=== PATIENT | female | born 1950 | race Two or more races ===

== ENCOUNTER → 2022-09-18 | Outpatient (CLI) | payer MEDICARE, OTHER | END | disposition home or self-care (01) | LOC: Rad HDHVI 13:05 | PROVIDERS: ATTEND Internal Medicine Cardiovascular Disease | DX: I34.0 Nonrheumatic mitral (valve) insufficiency (principal); I11.9 Hypertensive heart disease without heart failure; E78.5 Hyperlipidemia, unspecified | CPT/HCPCS: 93306 ==

== ENCOUNTER → 2022-09-22 | Outpatient (CLI) | payer MEDICARE, OTHER ==
[~2022-09-22] VITALS: Ht 162.6 cm; Wt 65.3 kg
== END | disposition home or self-care (01) ==
LOC: Rad HDHVI 12:37
PROVIDERS: ATTEND Internal Medicine Cardiovascular Disease
DX: I10 Essential (primary) hypertension (principal); E78.5 Hyperlipidemia, unspecified; I34.0 Nonrheumatic mitral (valve) insufficiency; Z82.49 Family history of ischemic heart disease and other diseases of the circulatory system
CPT/HCPCS: 78452; 93017; 96374; A9500

== ENCOUNTER → 2024-01-03 | Outpatient (CLI) | payer MEDICARE, OTHER | END | disposition home or self-care (01) | LOC: LAB 13:08 | PROVIDERS: ATTEND Internal Medicine | DX: R26.89 Other abnormalities of gait and mobility (principal) | CPT/HCPCS: 36415; 82565; 84520 ==

== ENCOUNTER → 2024-02-21 | Outpatient (CLI) | payer MEDICARE, OTHER ==
[~2024-02-21] VITALS: Ht 162.6 cm; Wt 63.5 kg
[~2024-02-21] MED LIST: ADENOSINE 53 MG in GIVE UN-DILUTED 0 ML IV ONE; ADENOSINE 90 MG/30 ML INJ IV ONE
== END | disposition home or self-care (01) ==
LOC: Rad HDHVI 08:39
PROVIDERS: ATTEND Internal Medicine Cardiovascular Disease
DX: I70.1 Atherosclerosis of renal artery (principal); I11.0 Hypertensive heart disease with heart failure; I50.9 Heart failure, unspecified; R42 Dizziness and giddiness; E11.9 Type 2 diabetes mellitus without complications
CPT/HCPCS: 78452; 93005; 96374; 96375; A9500; J0153

== ENCOUNTER → 2024-09-20 | Outpatient (CLI) | payer MEDICARE, OTHER ==
[2024-09-20 06:37] LABS: Urine Bacteria None Seen /hpf (None Seen)
[2024-09-20 06:59] LABS: Urine Blood Negative /uL (Negative); Urine Clarity Clear (Clear); Urine Color Colorless (Yellow); Urine Protein, UAD Negative (Negative); Urine Specific Gravity 1.003 (1.001-1.035); Urine Squamous Epithelial Cell None Seen /hpf (<5); Urine Urobilinogen Normal (Negative); Urine WBC < 1 /HPF (0-5)
== END | disposition home or self-care (01) ==
LOC: LAB 06:34
PROVIDERS: ATTEND Urology
DX: N39.0 Urinary tract infection, site not specified (principal)
CPT/HCPCS: 81001; 87086

== ENCOUNTER 2024-10-11 12:30 | Outpatient (CLI) | payer MEDICARE, OTHER | END 2024-10-11 17:00 | disposition home or self-care (01) | LOC: Rad HDHVI 12:30 | PROVIDERS: ATTEND Internal Medicine Cardiovascular Disease | DX: I10 Essential (primary) hypertension (principal); H53.8 Other visual disturbances | CPT/HCPCS: 93880 ==

== ENCOUNTER 2024-11-21 10:54 | Inpatient (IN) | payer MEDICARE, OTHER ==
[~2024-11-21] VITALS: Ht 162.6 cm; Wt 69.0 kg
--- NOTE | 2024-11-21 11:11 | ED.PDOC ---
HPI (NEURO) HPI Comments 74 y/o F, presents to the ED for CC of generalized weakness. Patient states, she has been experiencing symptoms of generalized weakness with associated nasal congestion onset, last night (11/20/24). Patient reports, new onset symptoms of dizziness, faintness, and nausea starting this morning (11/21/24). Patient denies urinary frequency, dysuria, chest pain, shortness of breath, or photophobia. No other associated symptoms, modifiers, recent injuries or sick contacts present at this time. 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 Family History Family History: Unknown Social History Smoker: Non-Smoker Alcohol: Denies ETOH Use Drugs: Denies Drug Use Lives In: Home Constitutional: reports: sweats, weakness; denies: chills, diaphoresis, fatigue, fever, malaise, others EENTM: reports: nose congestion; denies: blurred vision, double vision, ear bleeding, ear discharge, ear drainage, ear pain, ear ringing, eye pain, eye redness, hearing loss, mouth pain, mouth swelling, nasal discharge, nose bleeding, nose pain, photophobia, tearing, throat pain, throat swelling, voice changes, others Respiratory: denies: cough, hemoptysis, orthopnea, SOB at rest, shortness of breath, SOB with excertion, stridor, wheezing, others Cardiovascular: denies: chest pain, dizzy spells, diaphoresis, Dyspnea on exertion, edema, irregular heart beat, left arm pain, lightheadedness, palpitations, PND, syncope, others Gastrointestinal: reports: nausea; denies: abdomen distended, abdominal pain, blood streaked bowels, constipated, diarrhea, dysphagia, difficulty swallowing, hematemesis, melena, poor appetite, poor fluid intake, rectal bleeding, rectal pain, vomiting, others Genitourinary: denies: abnormal vagina bleeding, burning, dyspareunia, dysuria, flank pain, frequency, hematuria, incontinence, pain, , vagina discharge, urgency, others Neurological: denies: dizziness, fainting, headache, left sided numbness, left sided weakness, numbness, paresthesia, pre-existing deficit, right sided numbness, right sided weakness, seizure, speech problems, tingling, tremors, weakness, others Musculoskeletal: denies: back pain, gout, joint pain, joint swelling, muscle pain, muscle stiffness, neck pain, others Integumetry: denies: bruises, change in color, change in hair/nails, dryness, laceration, lesions, lumps, rash, wounds, others Allergic/Immunocompromised: denies: Difficulty Healing, Frequent Infections, Hives, Itching, others Hematologic/Lymphatic: denies: anemia, blood clots, easy bleeding, easy bruising, swollen glands, others Endocrine: denies: excessive hunger, excessive sweating, excessive thirst, excessive urination, flushing, intolerance to cold, intolerance to heat, unexplained weight gain, unexplained weight loss, others Psychiatric: denies: anxiety, bipolar disorder, depression, hopeless, panic disorder, schizophrenia, sleepless, suicidal, others All Other Systems: Reviewed and Negative Physical Exam General Appearance: No Apparent Distress, Normal, Other (fraile, weak apperaing) HEENT: Normal ENT Inspection, Pharynx Normal Neck: Full Range of Motion, Non-Tender, Normal, Normal Inspection Respiratory: Chest Non-Tender, Lungs Clear, No Accessory Muscle Use, No Respiratory Distress, Normal Breath Sounds Cardiovascular: No Edema, No Murmur, No Gallop, Normal Peripheral Pulses, Regular Rate/Rhythm Breast Exam: Deferred Gastrointestinal: No Organomegaly, Non Tender, No Pulsatile Mass, Normal Bowel Sounds, Soft Genitalia: Deferred Pelvic: Deferred Rectal: Deferred Extremities: No calf tenderness, Normal capillary refill, Normal inspection, Normal range of motion, Non-tender, No pedal edema Musculoskeletal : Apperance: Normal Neurologic: Alert, pricing clerk II-XII nml as Tested, No Motor Deficits, Normal Affect, Normal Mood, No Sensory Deficits Cerebellar Function: Normal Reflexes: Normal Skin: Dry, Normal Color, Warm Lymphatic: No Adenopathy Was a procedure done? Was a procedure done?: No Differential Diagnosis (SZ) Seizure: N/A General Weakness: Dehydration, Electrolyte imbalance, Hypoglycemia, Vertigo: central, Vertigo: peripheral Headache: N/A X-Ray, Labs, Meds, VS Vital Signs Date Time Temp Pulse Resp B/P (MAP) Pulse Ox O2 Delivery O2 Flow Rate FiO2 11/21/24 11:09 65 11/21/24 11:00 97.7 62 12 99/49 95 97.7 Lab Test 11/21/24 11:20 Range/Units White Blood Count 4.9 4.4-10.8 10^3/uL Red Blood Count 5.04 4.0-5.20 10^6/uL Hemoglobin 16.2 12.2-16.2 g/dL Hematocrit 47.0 H 36.0-46.0 % Mean Corpuscular Volume 93.2 80.0-100.0 fL Mean Corpuscular Hemoglobin 32.1 H 28.0-32.0 pg Mean Corpuscular Hemoglobin Concent 34.5 32.0-36.0 g/dL Red Cell Distribution Width 13.4 11.8-14.3 % Platelet Count 187 140-450 10^3/uL Mean Platelet Volume 9.1 6.9-10.8 fL Neutrophils (%) (Auto) 67.6 37.0-80.0 % Lymphocytes (%) (Auto) 18.5 10.0-50.0 % Monocytes (%) (Auto) 12.3 H 0.0-12.0 % Eosinophils (%) (Auto) 0.5 0.0-7.0 % Basophils (%) (Auto) 1.1 0.0-2.0 % Neutrophils # (Auto) 3.3 1.6-8.6 10 ^3/uL Lymphocytes # (Auto) 0.9 0.4-5.4 10 ^3/uL Monocytes # (Auto) 0.6 0-1.3 10 ^3/uL Eosinophils # (Auto) 0 0-0.8 10 ^3/uL Basophils # (Auto) 0.1 0-0.2 10 ^3/uL Nucleated Red Blood Cells 0.0 % Sodium Level 138 136-145 mmol/L Potassium Level 4.0 3.5-5.1 mmol/L Chloride Level 102 98-107 mmol/L Carbon Dioxide Level 27 20-31 mmol/L Anion Gap 9 5-15 Blood Urea Nitrogen 12 9-23 mg/dL Creatinine 0.71 0.550-1.02 mg/dL Glomerular Filtration Rate Calc 88 >90 mL/min BUN/Creatinine Ratio 16.9 10.0-20.0 Serum Glucose 145 H 74-106 mg/dL Lactic Acid Level 2.1 *H 0.4-2.0 mmol/L Calcium Level 10.3 8.7-10.4 mg/dL Troponin I High Sensitivity < 3 L </=34 ng/L B-Type Natriuretic Peptide 13.56 0-100 pg/mL [place] [id number] Ph: [phone] DIAGNOSTIC IMAGING Diagnostic Imaging Report : [id number] Signed PATIENT: NICKY YEAGER ACCT: [id number] UNIT: [id number] : 1950 LOC: ER ROOM / BED: / AGE / SEX: 74 / F ADM STATUS: REG ER SERVICE 03 ORDERING PHYSICIAN: CATHY ÁLVAREZ MD PROCEDURE(s): CXRP - CHEST PORTABLE REASON: near syncope ORDER NUMBER(s): [id number], ACCESSION NUMBER(s): [id number] EXAM: XY CHEST PORTABLE HISTORY: near syncope COMPARISON: Chest CT dated 07/19/2023 TECHNIQUE: Portable upright AP view of the chest was performed. FINDINGS: No pneumothorax, consolidative infiltrates, or pulmonary edema. The heart is borderline enlarged. IMPRESSION: No acute intrathoracic process. ATED BY: MALA BENAVIDES MD DICTATED DATE/TIME: 11/21/24 114 SIGNED BY: MALA BENAVIDES MD SIGNED DATE/TIME: 11/21/24 114 CC: [place] [id number] Ph: [phone] DIAGNOSTIC IMAGING Diagnostic Imaging Report : [id number] Signed PATIENT: NICKY YEAGER ACCT: [id number] UNIT: [id number] : 1950 LOC: ER ROOM / BED: / AGE / SEX: 74 / F ADM STATUS: REG ER SERVICE 03 ORDERING PHYSICIAN: CATHY ÁLVAREZ MD PROCEDURE(s): HWOCT - HEAD WITHOUT CONTRAST REASON: near syncope ORDER NUMBER(s): [id number], ACCESSION NUMBER(s): [id number] EXAM: CT HEAD WITHOUT CONTRAST INDICATION: near syncope TECHNIQUE: CT of the head without intravenous contrast. Radiation Dose Information: CT Dose: CTDI volume is 55.04 mGy. Dose-length product is 974.63 mGy*cm The dose indicators for CT are the volume Computed Tomography (CT) Dose Index (CTDIvol) and the Dose Length Product (DLP), and are measured in units of mGy and mGy-cm, respectively. These indicators are not patient dose, but values generated from the CT scanner acquisition factors. The report includes radiation exposure data for exposures received during this examination. COMPARISON: None FINDINGS: There is no evidence of acute intracranial hemorrhage, extra-axial collection, mass effect, midline shift, herniation or hydrocephalus. The ventricles, sulci and cisterns are age appropriate. The taylor-white differentiation is intact. Patchy periventricular and subcortical white matter hypoattenuation is nonspecific but may be related to small vessel ischemic disease. The visualized paranasal sinuses and mastoid air cells are clear. The surrounding soft tissues and osseous structures are unremarkable. IMPRESSION: No acute intracranial abnormality. ATED BY: MYRANDA BANERJEE MD DICTATED DATE/TIME: 11/21/24 1159 SIGNED BY: MYRANDA BANERJEE MD SIGNED DATE/TIME: 11/21/24 1159 CC: Time of 1ST Reevaluation: 11:30 Reevaluation 1ST: Unchanged Patient Education/Counseling: Diagnosis, Treatment Family Education/Counseling: No Family Present Departure 1 Departure Time of Disposition: 13:03 (Patient's worsening weakness and generalized fat igue. Patient also reports she has with her hair and fingernails. Possibly thyroid issue. Patient easily feels like she is going to pass out. We will admit patient for further workup and expert consultation) Impression: Primary Impression: Near syncope Additional Impressions: Intractable abdominal pain Nausea Disposition: ADMITTED INPATIENT Admit to: Med Surg Condition: Serious Critical Care Note Critical Care Time?: No Stability Stability form required: No Heart Score Heart Score: Heart Score Response (Comments) Value History N/A 0 EKG N/A 0 Age N/A 0 Risk Factors N/A 0 Troponin N/A 0 Total 0 I personally scribed for CATHY ÁLVAREZ MD ([email or web address]) on 11/21/24 at 11:11. Electronically submitted by Christy Kendrick ([employer]). I personally scribed for CATHY ÁLVAREZ MD ([email or web address]) on 11/21/24 at 12:06. Electronically submitted by Christy Kendrick ([employer]). I personally scribed for CATHY ÁLVAREZ MD ([email or web address]) on 11/21/24 at 12:11. Electronically submitted by Christy Kendrick ([employer]). CATHY ÁLVAREZ MD Nov 21, 2024 11:11
[2024-11-21 11:36] LABS: Hematocrit 47.0 % (36.0-46.0); Hemoglobin 16.2 g/dL (12.2-16.2); Mean Corpuscular Hemoglobin 32.1 pg (28.0-32.0); Mean Corpuscular Volume 93.2 fL (80.0-100.0); Nucleated Red Blood Cells % 0.0 %
[2024-11-21 11:43] LABS: Chloride 102 mmol/L (98-107); Potassium 4.0 mmol/L (3.5-5.1); Sodium 138 mmol/L (136-145)
[2024-11-21 11:44] LABS: Anion Gap 9 (5-15); Calcium 10.3 mg/dL (8.7-10.4); Carbon Dioxide 27 mmol/L (20-31)
--- NOTE | 2024-11-21 11:46 | DVH ---
EXAM: XY CHEST PORTABLE HISTORY: near syncope COMPARISON: Chest CT dated 07/19/2023 TECHNIQUE: Portable upright AP view of the chest was performed. FINDINGS: No pneumothorax, consolidative infiltrates, or pulmonary edema. The heart is borderline enlarged. IMPRESSION: No acute intrathoracic process.
[2024-11-21 11:49] LABS: BUN/Creatinine Ratio 16.9 (10.0-20.0); Blood Urea Nitrogen 12 mg/dL (9-23); Glucose 145 mg/dL (74-106)
[2024-11-21 12:01] LABS: Lactic Acid w/Reflex 2.1 mmol/L (0.4-2.0)
--- NOTE | 2024-11-21 12:02 | DVH ---
EXAM: CT HEAD WITHOUT CONTRAST INDICATION: near syncope TECHNIQUE: CT of the head without intravenous contrast. Radiation Dose Information: CT Dose: CTDI volume is 55.04 mGy. Dose-length product is 974.63 mGy*cm The dose indicators for CT are the volume Computed Tomography (CT) Dose Index (CTDIvol) and the Dose Length Product (DLP), and are measured in units of mGy and mGy-cm, respectively. These indicators are not patient dose, but values generated from the CT scanner acquisition factors. The report includes radiation exposure data for exposures received during this examination. COMPARISON: None FINDINGS: There is no evidence of acute intracranial hemorrhage, extra-axial collection, mass effect, midline s hift, herniation or hydrocephalus. The ventricles, sulci and cisterns are age appropriate. The taylor-white differentiation is intact. Patchy periventricular and subcortical white matter hypoattenuation is nonspecific but may be related to small vessel ischemic disease. The visualized paranasal sinuses and mastoid air cells are clear. The surrounding soft tissues and osseous structures are unremarkable. IMPRESSION: No acute intracranial abnormality.
[2024-11-21] MEDS ORDERED: ANAS1TAB7 PO (14:12)
[2024-11-21] MEDS ORDERED: AMLO1TAB22 PO (14:12)
[2024-11-21] MEDS: ACETAMINOPHEN 325 MG TAB PO ONE (14:16)
[2024-11-21] MEDS: SODIUM CHLORIDE 0.9% 1,000 ML IV ONE (14:16)
[2024-11-21] MEDS: ONDANSETRON HCL 4 MG/2 ML VIAL IV ONE (14:18)
[2024-11-21 14:27] LABS: Urine Protein, UAD Negative (Negative)
[2024-11-21] MEDS ORDERED: DOCUSATE SOD 100 MG CAP PO PRN (14:45)
[2024-11-21] MEDS ORDERED: ONDANSETRON HCL 4 MG/2 ML VIAL IV PRN (14:45)
[2024-11-21] MEDS ORDERED: MORPHINE SULFATE INJ 2 MG/ml SYRG IV PRN (14:45)
[2024-11-21] MEDS ORDERED: NITROGLYCERIN 0.4 MG SL TAB SL PRN (14:45)
[2024-11-21] MEDS ORDERED: HYDROcodone-ACET 5/325MG TAB PO PRN (14:45)
--- NOTE | 2024-11-21 14:48 | DVHHP2 ---
History of Present Illness Reason for Visit: Generalized weakness History of Present Illness Shalonda Torres is a 74-year-old female with past medial history of hypertension, who came to the hospital for generalized weakness. Patient states she woke up this morning with congestion, feeling dizzy, and nauseated. She went to urgent care to be evaluated. While she was there she became lightheaded, hypertensive, sweaty, nauseated, dizzy, and had a near syncopal episode. The urgent care staff wheeled the patient to ER for further evaluation. Cardiovascular: HTN Past Surgical History: Hysterectomy, Other (left breast lumpectomy, right knee) Smoke: No ALCOHOL: none Drugs: None Lives: with Family Review of Systems Constitutional: Yes: Sweats, Other (lightheadedness, headache); No: Fever, Chills, Weakness, Malaise Eyes: No: Pain, Vision change, Conjunctivae inflammation, Eyelid inflammation, Other, Redness ENT: No: Ear pain, Ear discharge, Nose pain, Nose discharge, Nose congestion, Mouth pain, Mouth swelling, Throat pain, Throat swelling, Other Respiratory: No: Cough, Dry, Shortness of breath, SOB with excertion, Wheezing, Hemoptysis, Pleuritic Pain, Sputum, Wheezing, Other Cardiovascular: No: Chest Pain, Palpitations, Orthopnea, Paroxysmal Noc. Dyspnea, Edema, Lt Headedness, Other Gastrointestinal: Nausea; No: Vomiting, Abdominal Pain, Diarrhea, Constipation, Melena, Hematochezia, Other Genitourinary: No Dysuria, No Frequency, No Incontinence, No Hematuria, No Retention, No Other Musculoskeletal: No: other, neck pain, shoulder pain, arm pain, back pain, hand pain, leg pain, foot pain Skin: No: Rash, Lesions, Jaundice, Bruising, Other Neurological: Other (dizzy); No: Weakness, Numbness, Incoordination, Change in speech, Confusion, Seizures Allergies: Coded Allergies: NO KNOWN ALLERGIES (Unverified , 09/22/22) Medications Current Medications Medications Dose Ordered Sig/Marci Route Start Time Stop Time Status Last Admin Dose Admin Amlodipine Besylate 5 mg DAILY PO 11/22/24 10:00 Patient Own Medication 1 tab DAILY PO 11/22/24 10:00 Exam Vital Signs Vital Signs Date Time Temp Pulse Resp B/P (MAP) Pulse Ox O2 Delivery O2 Flow Rate FiO2 11/21/24 13:53 98.6 81 15 147/86 (106) 98 98.6 11/21/24 13:53 Room Air General Appearance: Alert, Oriented X3, Cooperative, mild distress HEENT: Atraumatic, PERRLA Respiratory: Clear to auscultation, Normal air movement Labs/Xrays Labs Test 11/21/24 13:00 11/21/24 11:20 11/21/24 11:06 Range/Units Lactic Acid Level 1.8 0.4-2.0 mmol/L Troponin I High Sensitivity < 3 L </=34 ng/L White Blood Count 4.9 4.4-10.8 10^3/uL Red Blood Count 5.04 4.0-5.20 10^6/uL Hemoglobin 16.2 12.2-16.2 g/dL Hematocrit 47.0 H 36.0-46.0 % Mean Corpuscular Volume 93.2 80.0-100.0 fL Mean Corpuscular Hemoglobin 32.1 H 28.0-32.0 pg Mean Corpuscular Hemoglobin Concent 34.5 32.0-36.0 g/dL Red Cell Distribution Width 13.4 11.8-14.3 % Platelet Count 187 140-450 10^3/uL Mean Platelet Volume 9.1 6.9-10.8 fL Neutrophils (%) (Auto) 67.6 37.0-80.0 % Lymphocytes (%) (Auto) 18.5 10.0-50.0 % Monocytes (%) (Auto) 12.3 H 0.0-12.0 % Eosinophils (%) (Auto) 0.5 0.0-7.0 % Basophils (%) (Auto) 1.1 0.0-2.0 % Neutrophils # (Auto) 3.3 1.6-8.6 10 ^3/uL Lymphocytes # (Auto) 0.9 0.4-5.4 10 ^3/uL Monocytes # (Auto) 0.6 0-1.3 10 ^3/uL Eosinophils # (Auto) 0 0-0.8 10 ^3/uL Basophils # (Auto) 0.1 0-0.2 10 ^3/uL Nucleated Red Blood Cells 0.0 % Sodium Level 138 136-145 mmol/L Potassium Level 4.0 3.5-5.1 mmol/L Chloride Level 102 98-107 mmol/L Carbon Dioxide Level 27 20-31 mmol/L Anion Gap 9 5-15 Blood Urea Nitrogen 12 9-23 mg/dL Creatinine 0.71 0.550-1.02 mg/dL Glomerular Filtration Rate Calc 88 >90 mL/min BUN/Creatinine Ratio 16.9 10.0-20.0 Serum Glucose 145 H 74-106 mg/dL Calcium Level 10.3 8.7-10.4 mg/dL B-Type Natriuretic Peptide 13.56 0-100 pg/mL Urine Color Yellow Yellow Urine Clarity Turbid H Clear Urine pH 7.5 5.0-9.0 Urine Specific [place] 1.013 1.001-1.035 Urine Protein Negative Negative Urine Ketones Negative Negative Urine Blood Negative Negative /uL Urine Nitrite Negative Negative Urine Bilirubin Negative Negative Urine Urobilinogen Normal Negative mg/dL Urine Leukocyte Esterase Negative Negative /uL Urine RBC 1 0 - 4 /hpf Urine Microscopic WBC 6 H 0-5 /HPF Urine Squamous Epithelial Cells Few <5 /hpf Urine Bacteria Few H None Seen /hpf Urine Glucose Normal Normal mg/dL EXAM: XY CHEST PORTABLE FINDINGS: No pneumothorax, consolidative infiltrates, or pulmonary edema. The heart is borderline enlarged. IMPRESSION: No acute intrathoracic process. EXAM: CT HEAD WITHOUT CONTRAST FINDINGS: There is no evidence of acute intracranial hemorrhage, extra-axial collection, mass effect, midline shift, herniation or hydrocephalus. The ventricles, sulci and cisterns are age appropriate. The taylor-white differentiation is intact. Patchy periventricular and subcortical white matter hypoattenuation is nonspecific but may be related to small vessel ischemic disease. The visualized paranasal sinuses and mastoid air cells are clear. The surrounding soft tissues and osseous structures are unremarkable. IMPRESSION: No acute intracranial abnormality. SEPSIS Sepsis Screen Date sepsis recognized/suspect: Nov 21, 2024 Time Sepsis recognized/suspect: 1100 Recent Procedure: No On Antibiotic Therapy: No Respiratory Rate >20: No Heart Rate >90: No Temp<36 C (96.8 F) or >38.3 C: No SBP <90 or MAP <65 mmHG: No New Acute Mental Status Change: No Is the patient on CPAP, BIPAP,: No Physician Orders Chest Portable (11/21/24 11:04) Head Without Contrast (11/21/24 11:04) Electrocardigram (11/21/24 11:04) Blood Culture (11/21/24 11:04) Troponin-I Hs (11/21/24 14:04) Electrocardigram (11/21/24 12:04) Electrocardigram (11/21/24 14:04) Saline Lock (11/21/24 13:41) Amlodipine Tablet (Norvasc Tablet) (11/22/24 10:00) (Nf) Anastrozole (11/22/24 10:00) Vital Signs Date Time Temp Pulse Resp B/P (MAP) Pulse Ox O2 Delivery O2 Flow Rate FiO2 11/21/24 13:53 98.6 81 15 147/86 (106) 98 98.6 11/21/24 13:53 81 15 98 Room Air 11/21/24 13:11 98.1 73 16 171/67 (101) 99 98.1 11/21/24 11:09 65 11/21/24 11:00 97.7 62 12 99/49 95 97.7 Laboratory Tests Test 11/21/24 11:20 11/21/24 13:00 Lactic Acid Level 2.1 mmol/L (0.4-2.0) *H 1.8 mmol/L (0.4-2.0) White Blood Count 4.9 10^3/uL (4.4-10.8) Medications Medications Dose Ordered Sig/Marci Route Start Time Stop Time Status Last Admin Dose Admin Acetaminophen 650 mg ONCE ONCE PO 11/21/24 13:00 11/21/24 13:06 DC 11/21/24 14:16 650 MG Ondansetron HCl 4 mg ONCE ONCE IV 11/21/24 13:00 11/21/24 13:06 DC 11/21/24 14:18 4 MG Sodium Chloride 1,000 ml @ 1,000 mls/hr Q1H ONCE IV 11/21/24 13:00 11/21/24 13:59 DC 11/21/24 14:16 1,000 MLS/HR Assessment/Plan Assessment/Plan Assessment: Near syncope, Uncontrolled hypertension, Lactic acidosis, Hyperglycemia, Plan: Admit to Tele, Cardiology consult, Neurology consult, ECHO, Carotid Doppler duplex, A1c, PRN antihypertensives, Home medications reconciled, Plan discussed with: Patient My Orders Orders - APRIL CLANCY [employer] SUPERVISOR Procedure Category Date Status Time Amlodipine Tablet PHA 11/22/24 In Process (Norvasc Tablet) 10:00 (Nf) Anastrozole PHA 11/22/24 In Process 10:00 Date of Service: Nov 21, 2024 Billing Provider: APRIL CLANCY Common Visit Codes: [id number] INP/OBS CARE (MOD) APRIL CLANCY Nov 21, 2024 14:48
[2024-11-21 16:27] VITALS: PULSE 92; RESP 14; O2SAT 97
[2024-11-21] MEDS ORDERED: IBUPROFEN 600 MG TAB PO PRN (16:45)
[2024-11-21] MEDS ORDERED: METOCLOPRAMIDE HCL 5MG/ml INJ 2ml VIAL IV PRN (17:30)
--- NOTE | 2024-11-21 17:57 | DVH ---
US CAROTID DOPPLER CLINICAL INDICATION: Near syncope TECHNIQUE: Multiple grayscale, color Doppler and spectral Doppler ultrasound images were obtained thr oughout both carotid systems. COMPARISON: US CAROTID DUPLX W COLOR DOP on DOS: 10/11/24, US CAROTID DUPLX W COLOR DOP on DOS: 3 FINDINGS: RIGHT: CCA PSV: 79 cm/s ECA PSV: 112 cm/s ICA PSV: 109 cm/s ICA EDV: 16 cm/s ICA/CCA Ratio: 1.4 Vertebral artery: Patent, antegrade flow. Mild calcified plaque at the carotid bifurcation. Grayscale images demonstrate no visible stenosis. Spectral analysis demonstrates no hemodynamically significant CCA or ICA stenosis. LEFT: CCA PSV: 83 cm/s ECA PSV: 81 cm/s ICA PSV: 109 cm/s ICA EDV: 21 cm/s ICA/CCA Ratio: 1.03 Vertebral artery: Patent, antegrade flow. Mild calcified plaque at the carotid bifurcation. Grayscale images demonstrate no visible stenosis. S pectral analysis demonstrates no hemodynamically significant CCA or ICA stenosis. IMPRESSION: No evidence of hemodynamically significant CCA or ICA stenosis.
[2024-11-21 18:13] LABS: Free T3 3.82 pg/mL (2.3-4.2); Free T4 (Free Thyroxine) 1.12 ng/dL (0.89-1.76)
[2024-11-21 19:35] VITALS: PULSE 70; RESP 11; O2SAT 97
--- NOTE | 2024-11-21 20:41 | DVHINCON2 ---
Date of service: Nov 21, 2024 Referring Physician Sushma Reason for Consultation Near syncope History of Present Illness Ms. Torres is a 74 years old right-handed female with a history of hypertension, osteoporosis, breast cancer, she came to the [facility] on 11/21/24 with a chief complaint of dizziness. At this time, she is alert and fully oriented, she provided the following history Around 5:00 a.m. on 11/21/2024, when she was getting up to take of her granddaughter, she developed dizziness/lightheadedness. Around 7:00 a.m. on 11/21/24, when she was sitting, she developed intense dizziness along with whole-body hot feeling, profuse sweating, nausea, a feeling of passing out, she laid down and the symptoms improved. Later he had had no more dizziness event, but it is time when she moves her head, she had a feeling of "jello moving" inside her head Since 2017, areas four months of time, she had similar but less intense event, he was seen by a neurologist, and Sudafed was recommended Denies recent chills, fever, nausea vomiting, coughing or other acute illness, she keeps herself Urinalysis, 11/21/2024: WBC: 6, urine leukocyte esterase: Negative CBC, 11/21/2024: Unremarkable BMP, 11/21/2024: Unremarkable Lactic acid, 11/12/2024: 2.1, 1.8 TSH, 11/21/2024: 2.12 Carotid Doppler, 11/21/2024: No evidence of hemodynamically significant CCA or ICA stenosis CT head, 11/21/2024: No acute intracranial abnormality MRI head, 01/11/2024: 1. No acute intracranial abnormality. 2. No mass or abnormal postcontrast enhancement. 3. Paranasal sinus disease as described above. Past Medical History Hypertension, osteoporosis, breast cancer Past Surgical History Hysterectomy, lobectomy Family History Diabetes, heart attack Social History She is a not tobacco smoke, she denies a history of drug/alcohol abuse Allergies: Coded Allergies: NO KNOWN ALLERGIES (Unverified , 09/22/22) Home Meds Reported Medications Amlodipine Besylate (Amlodipine Besylate) 5 Mg Tab, 1 TAB PO DAILY 11/21/24 Anastrozole (Anastrozole) 1 Mg Tab, 1 TAB PO DAILY 11/21/24 Current Medications Current Medications Medications (Trade) Dose Ordered Sig/Marci Route PRN Reason Start Time Stop Time Status Last Admin Amlodipine Besylate (Norvasc Tablet) 5 mg DAILY PO 11/22/24 10:00 Patient Own Medication 1 tab DAILY PO 11/22/24 10:00 Sodium Chloride (Saline Lock Ns) 10 ml Q8HR IV 11/21/24 22:00 Acetaminophen/ Hydrocodone Bitart ([place] 5/325MG Tab) 1 tab Q4HP PRN PO MODERATE PAIN (4-6 PAIN SCALE) 11/21/24 14:45 Ondansetron HCl (Zofran) 4 mg Q4HP PRN IV NAUSEA / VOMITING 11/21/24 14:45 Docusate Sodium (Colace Capsule) 100 mg BIDPRN PRN PO FOR CONSTIPATION 11/21/24 14:45 Acetaminophen (Tylenol Tablet) 650 mg Q6HP PRN PO PAIN SCALE 1-3 OR TEMP>100.4 11/21/24 14:45 Nitroglycerin (Ntrostat Sublingual) 0.4 mg Q5MINP PRN SL FOR CHEST PAIN 11/21/24 14:45 Morphine Sulfate 2 mg Q30M PRN IV FOR CHEST PAIN 11/21/24 14:45 Ibuprofen (Motrin Tablet) 600 mg Q6HP PRN PO MODERATE PAIN (4-6 PAIN SCALE) 11/21/24 16:45 Hydralazine HCl (Apresoline Injection) 10 mg Q6HP PRN IV SBP>150 11/21/24 17:30 Metoclopramide HCl (Reglan Injection) 10 mg Q6HPRN PRN IV NAUSEA / VOMITING 11/21/24 17:30 Review of Systems As above, the other systems are negative Vital Signs Vital Signs Date Time Temp Pulse Resp B/P (MAP) Pulse Ox O2 Delivery O2 Flow Rate FiO2 11/21/24 18:00 95 15 157/65 (95) 95 11/21/24 16:27 Room Air* 0 21 11/21/24 16:25 98.0 98.0 Physical Exam GENERAL EXAM: General: the patient is well developed and nourished. No acute distress. HEENT: Normocephalic, neck is supple, no carotid bruits. No mass. RESPIRATORY: Normal respiratory effort with symmetrical lung expansion. Lungs clear to auscultation. CARDIOVASCULAR: Regular rate and rhythm with no murmurs. S1, S2. ABDOMEN: Soft, nontender, normal bowel sound NEUROLOGICAL: MENTAL STATUS: Awake and alert. Oriented to person, place, time and general circumstances. Able to give personal history. SPEECH, LANGUAGE, HIGHER CORTICAL FUNCTION: no aphasia or dysathria. CRANIAL NERVES: #2: Intact visual de la vega to confrontation. The optic discs were sharp. #3,4,6: Pupils are equal, round and reactive. EOMs full and conjugate. No nystagmus. #5: Facial sensation intact in all three divisions bilaterally. Mandibular strength intact. #7: Facial muscles symmetrical and strength intact. #8: Hearing grossly normal to voice. #9,10: Uvula and soft palate rise in the midline. Swallow and voice are normal. #11: Trapezius and sternomastoid strength intact bilaterally. #12: Tongue midline. No fasciculations or atrophy. SENSATION: Sensation to touch and pinprick is normal. MOTOR: Normal tone in the upper and lower extremity. Normal muscle bulk. No fasciculations. No abnormal movements or posturing. Muscle strength of the major groups in the upper extremities is 5/5. Muscle strength of the major groups in the lower extremities is 5/5. REFLEXES: Deep tendon reflexes normal and symmetrical. No pathological reflexes. CEREBELLAR/COORDINATION: Finger to nose and heel to dunham are normal bilaterally. GAIT/STATION: deferred. Labs/Diagnostic Data Labs Test 11/21/24 13:00 11/21/24 11:20 11/21/24 11:06 Range/Units Lactic Acid Level 1.8 0.4-2.0 mmol/L Troponin I High Sensitivity < 3 L </=34 ng/L Thyroid Stimulating Hormone (TSH) 2.12 0.55-4.78 uIU/mL Free Thyroxine (T4) Calculated 1.12 0.89-1.76 ng/dL Free Triiodothyronine (T3) pg/mL 3.82 2.3-4.2 pg/mL White Blood Count 4.9 4.4-10.8 10^3/uL Red Blood Count 5.04 4.0-5.20 10^6/uL Hemoglobin 16.2 12.2-16.2 g/dL Hematocrit 47.0 H 36.0-46.0 % Mean Corpuscular Volume 93.2 80.0-100.0 fL Mean Corpuscular Hemoglobin 32.1 H 28.0-32.0 pg Mean Corpuscular Hemoglobin Concent 34.5 32.0-36.0 g/dL Red Cell Distribution Width 13.4 11.8-14.3 % Platelet Count 187 140-450 10^3/uL Mean Platelet Volume 9.1 6.9-10.8 fL Neutrophils (%) (Auto) 67.6 37.0-80.0 % Lymphocytes (%) (Auto) 18.5 10.0-50.0 % Monocytes (%) (Auto) 12.3 H 0.0-12.0 % Eosinophils (%) (Auto) 0.5 0.0-7.0 % Basophils (%) (Auto) 1.1 0.0-2.0 % Neutrophils # (Auto) 3.3 1.6-8.6 10 ^3/uL Lymphocytes # (Auto) 0.9 0.4-5.4 10 ^3/uL Monocytes # (Auto) 0.6 0-1.3 10 ^3/uL Eosinophils # (Auto) 0 0-0.8 10 ^3/uL Basophils # (Auto) 0.1 0-0.2 10 ^3/uL Nucleated Red Blood Cells 0.0 % Sodium Level 138 136-145 mmol/L Potassium Level 4.0 3.5-5.1 mmol/L Chloride Level 102 98-107 mmol/L Carbon Dioxide Level 27 20-31 mmol/L Anion Gap 9 5-15 Blood Urea Nitrogen 12 9-23 mg/dL Creatinine 0.71 0.550-1.02 mg/dL Glomerular Filtration Rate Calc 88 >90 mL/min BUN/Creatinine Ratio 16.9 10.0-20.0 Serum Glucose 145 H 74-106 mg/dL Calcium Level 10.3 8.7-10.4 mg/dL B-Type Natriuretic Peptide 13.56 0-100 pg/mL Urine Color Yellow Yellow Urine Clarity Turbid H Clear Urine pH 7.5 5.0-9.0 Urine Specific Hen[place]er 1.013 1.001-1.035 Urine Protein Negative Negative Urine Ketones Negative Negative Urine Blood Negative Negative /uL Urine Nitrite Negative Negative Urine Bilirubin Negative Negative Urine Urobilinogen Normal Negative mg/dL Urine Leukocyte Esterase Negative Negative /uL Urine RBC 1 0 - 4 /hpf Urine Microscopic WBC 6 H 0-5 /HPF Urine Squamous Epithelial Cells Few <5 /hpf Urine Bacteria Few H None Seen /hpf Urine Glucose Normal Normal mg/dL Assessment Near syncopal event Arrhythmia Orthostatic hypotension Plan/Recommendation Monitoring Supportive treatment Orthostatic vitals MRI head Cardiology evaluation Syncope precautions discussed More recommendation per clinical course This medical document was created using an electronic medical record system with [employer] dictation system. Although this document has been carefully reviewed, there may still be some phonetic and typographical errors. These areas are purely typographical due to imperfections of the software programs, and do not reflect any compromise in the patient's medical care. Plan discussed with: Patient, Other MICHELLE VINSON MD Nov 21, 2024 20:41
[2024-11-21] MEDS ORDERED: LORazepam 0.5 MG TAB PO PRN (21:30)
[2024-11-21] MEDS: SODIUM CHLOR 0.9% PF (SALINE LOCK) 10ML VIAL/SYR IV SCH (21:58)
[2024-11-22 06:30] LABS: Hematocrit 47.2 % (36.0-46.0); Hemoglobin 16.5 g/dL (12.2-16.2); Mean Corpuscular Hemoglobin 32.7 pg (28.0-32.0); Mean Corpuscular Volume 93.5 fL (80.0-100.0); Nucleated Red Blood Cells % 0.1 %
[2024-11-22 06:40] LABS: Alanine Aminotransferase 29 U/L (7-40); Alkaline Phosphatase 111 U/L (46-116); Anion Gap 10 (5-15); BUN/Creatinine Ratio 17.6 (10.0-20.0); Bilirubin, Total 0.5 mg/dL (0.2-1.0); Blood Urea Nitrogen 13 mg/dL (9-23); Calcium 9.6 mg/dL (8.7-10.4); Carbon Dioxide 26 mmol/L (20-31); Chloride 105 mmol/L (98-107); Potassium 4.1 mmol/L (3.5-5.1); Sodium 141 mmol/L (136-145); Total Protein 7.8 g/dL (5.7-8.2)
[2024-11-22 06:43] LABS: Albumin 5.1 g/dL (3.2-4.8); Glucose 123 mg/dL (74-106)
[2024-11-22 07:40] VITALS: PULSE 72; RESP 14; O2SAT 96
--- NOTE | 2024-11-22 09:37 | DVHPN2 ---
Progress Note - Dictate Date Seen: Nov 22, 2024 Medical Necessity Reason Pt with a Central, PICC or Fol: No Subjective Ms. Torres is a 74 years old right-handed female with a history of hypertension, osteoporosis, breast cancer, she came to the [facility] on 11/21/24 with a chief complaint of dizziness. I have seen and examined the patient, I have discussed with her nurse and the medical staff, she is doing fine, alert and fully oriented, no dizziness Urinalysis, 11/21/2024: WBC: 6, urine leukocyte esterase: Negative CBC, 11/21/2024: Unremarkable BMP, 11/21/2024: Unremarkable Lactic acid, 11/12/2024: 2.1, 1.8 TSH, 11/21/2024: 2.12 Echocardiogram, 11/22/2024: Carotid Doppler, 11/21/2024: No evidence of hemodynamically significant CCA or ICA stenosis CT head, 11/21/2024: No acute intracranial abnormality MRI head, 01/11/2024: 1. No acute intracranial abnormality. 2. No mass or abnormal postcontrast enhancement. 3. Paranasal sinus disease as described above MRI head, 11/22/2024: No evidence of acute infarction, intracranial hemorrhage, mass effect or hydrocephalus vital signs Vital Sign Date Time Temp Pulse Resp B/P (MAP) Pulse Ox O2 Delivery O2 Flow Rate FiO2 11/22/24 07:08 66 12 128/54 (78) 97 11/22/24 05:20 98.0 98.0 11/21/24 19:35 Room Air* 0 21 Total Intake and Output 11/21/24 11/21/24 11/22/24 15:00 23:00 07:00 Intake Total 1000 ml Balance 1000 ml medications Current Medications Medications Dose Ordered Sig/Marci Route Start Time Stop Time Status Last Admin Dose Admin Amlodipine Besylate 5 mg DAILY PO 11/22/24 10:00 Patient Own Medication 1 tab DAILY PO 11/22/24 10:00 Sodium Chloride 10 ml Q8HR IV 11/21/24 22:00 11/22/24 06:06 10 ML Acetaminophen/ Hydrocodone Bitart 1 tab Q4HP PRN PO 11/21/24 14:45 Ondansetron HCl 4 mg Q4HP PRN IV 11/21/24 14:45 Docusate Sodium 100 mg BIDPRN PRN PO 11/21/24 14:45 Acetaminophen 650 mg Q6HP PRN PO 11/21/24 14:45 Nitroglycerin 0.4 mg Q5MINP PRN SL 11/21/24 14:45 Morphine Sulfate 2 mg Q30M PRN IV 11/21/24 14:45 Ibuprofen 600 mg Q6HP PRN PO 11/21/24 16:45 Hydralazine HCl 10 mg Q6HP PRN IV 11/21/24 17:30 Metoclopramide HCl 10 mg Q6HPRN PRN IV 11/21/24 17:30 Lorazepam 1 mg ONCE PRN PO 11/21/24 21:30 objective General: the patient is well developed and nourished. No acute distress. MENTAL STATUS: Awake and alert. Oriented to person, place, time and general circumstances. Able to give personal history. SPEECH, LANGUAGE, HIGHER CORTICAL FUNCTION: no aphasia or dysathria. CRANIAL NERVES: Pupils are equal, round and reactive. EOMs full and conjugate. No nystagmus. Facial sensation intact in all three divisions bilaterally. Mandibular strength intact. Facial muscles symmetrical and strength intact. SENSATION: Sensation to touch and pinprick is normal. MOTOR: Normal tone in the upper and lower extremity. Normal muscle bulk. No fasciculations. No abnormal movements or posturing. Muscle strength of the major groups in the extremities is 5/5. REFLEXES: Deep tendon reflexes normal and symmetrical. No pathological reflexes. CEREBELLAR/COORDINATION: Finger to nose and heel to dunham are normal bilaterally. GAIT/STATION: deferred laboratory and microbiology Laboratory Tests 11/22/24 06:02 Test 11/22/24 06:02 Range/Units Serum Glucose 123 H 74-106 mg/dL Problem List Near syncopal event Arrhythmia Orthostatic hypotension Assessment/Plan Monitoring Supportive treatment Orthostatic vitals Cardiology evaluation Syncope precautions discussed More recommendation per clinical course This medical document was created using an electronic medical record system with [employer] system. Although this document has been carefully reviewed, there may still be some phonetic and typographical errors. These areas are purely typographical due to imperfections of the software programs, and do not reflect any compromise in the patient's medical car Prognosis poor Plan discussed with: Patient, Other MICHELLE VINSON MD Nov 22, 2024 09:37
--- NOTE | 2024-11-22 09:51 | DVH ---
PROCEDURE: MRI BRAIN HEAD WO CONTRAST INDICATION: Syncopal event EXAM DATE: 11/22/2024 08:01 AM COMPARISON: CT HEAD WITHOUT CONTRAST on DOS: 11/21/24 TECHNIQUE: MRI of the brain without intravenous contrast. FINDINGS: Diffusion weighted images of the brain demonstrate no evidence of acute infarction. There is no evidence of acute intracranial hemorrhage, extra-axial collection, mass effect, midline s hift, herniation or hydrocephalus. The ventricles, sulci and cisterns appear age appropriate. The signal intensities of the brain parenchyma are within normal limits. There are no signal abnormalities on the susceptibility weighted sequences. The major vascular flow voids are present. The visualized paranasal sinuses and mastoid air cells are clear. The surrounding soft tissues and o sseous structures are unremarkable. IMPRESSION: 1. No evidence of acute infarction, intracranial hemorrhage, mass effect or hydrocephalus. HS:Y
[2024-11-22] MEDS: Anastrozole 1 MG TAB PO SCH (10:00)
--- NOTE | 2024-11-22 11:47 | DVHPNRES ---
Progress Note Date Seen: Nov 22, 2024 Resident Creating Document: JALEESA AZUL RESIDENT Medical Necessity Reason Pt with a Central, PICC or Fol: No Subjective Review of Systems A 74-year-old female with past medical history of hypertension, breast cancer status post lumpectomy and is on anastrozole, osteopenia presented with complaints of nausea, dizziness. Patient mentioned that she started having dizziness when she sit from lying supine. Patient mentioned that 1st episode resolved by itself and patient had another episode 2 hours later, was associated with hot flashes and nausea. Patient went to urgent Care later and had similar symptoms and urgent care decided to refer the patient to the ED. Patient mentioned that she has been having this similar symptoms in October and has been seeing Dr. Ryan, had workup done which she says was within normal limits. Patient Mentioned no chest pain, palpitation, shortness of breath, magnesium and no mentions of abdominal pain, vomiting, diarrhea, constipation. Patient's primary care is Dr. Miranda. Past medical history Hypertension Breast cancer on anastrozole Osteopenia Past surgical history Lumpectomy Social history Denied smoking, marijuana, alcohol and any other drug intake Medication history Amlodipine Anastrozole Allergic history No known allergies Objective vital signs Vital Sign Date Time Temp Pulse Resp B/P (MAP) Pulse Ox O2 Delivery O2 Flow Rate FiO2 11/22/24 10:06 136/55 11/22/24 10:00 70 15 97 11/22/24 05:20 98.0 98.0 11/21/24 19:35 Room Air* 0 21 Total Intake and Output 11/21/24 11/21/24 11/22/24 15:00 23:00 07:00 Intake Total 1000 ml Balance 1000 ml medications Current Medications Medications Dose Ordered Sig/Marci Route Start Time Stop Time Status Last Admin Dose Admin Amlodipine Besylate 5 mg DAILY PO 11/22/24 10:00 11/22/24 10:06 5 MG Patient Own Medication 1 tab DAILY PO 11/22/24 10:00 Sodium Chloride 10 ml Q8HR IV 11/21/24 22:00 11/22/24 06:06 10 ML Acetaminophen/ Hydrocodone Bitart 1 tab Q4HP PRN PO 11/21/24 14:45 Ondansetron HCl 4 mg Q4HP PRN IV 11/21/24 14:45 Docusate Sodium 100 mg BIDPRN PRN PO 11/21/24 14:45 Acetaminophen 650 mg Q6HP PRN PO 11/21/24 14:45 Nitroglycerin 0.4 mg Q5MINP PRN SL 11/21/24 14:45 Morphine Sulfate 2 mg Q30M PRN IV 11/21/24 14:45 Ibuprofen 600 mg Q6HP PRN PO 11/21/24 16:45 Hydralazine HCl 10 mg Q6HP PRN IV 11/21/24 17:30 Metoclopramide HCl 10 mg Q6HPRN PRN IV 11/21/24 17:30 Lorazepam 1 mg ONCE PRN PO 11/21/24 21:30 Examination Examination General Appearance: Alert, Oriented X3, Cooperative, No acute distress HEENT: EOMI Respiratory: Clear to auscultation, Normal air movement Cardiovascular: Regular rate, Normal S1, Normal S2 Abdominal: Normal bowel sounds Extremities: No cyanosis, No edema, Normal pulses, No tenderness/swelling Skin: No rashes, No breakdown Neuro: Normal gait, Normal speech, Strength at 5/5 X4 ext, Normal tone, Sensation intact, Cranial nerves 3-12 NL, Reflexes 2+ Psych/Mental Status: Mental status NL, Mood NL laboratory and microbiology Laboratory Tests 11/22/24 06:02 Test 11/22/24 06:02 Range/Units Serum Glucose 123 H 74-106 mg/dL Labs and/or images reviewed: Labs reviewed by me, Image(s) reviewed by me Problem List/Assessment/Plan Problem List/Assessment/Plan Assessment plan # presyncope with nausea, hot flashes likely due to anastrozole therapy EKG Tropes Echocardiogram Cardiology consult; primary graduate civil engineer Dr. Ryan Neurology on board Carotid Doppler WNL MRI done which is within normal limits X-ray TSH, B12, folate Orthostatic vitals UA CXR #?UTI culture urine IV ceftriaxone # hypertension Continue home medication # history of breast cancer status post lumpectomy Hold anastrozole as might be contributing to the current symptoms # osteopenia Patient is on Prolia every six months Goals of care discussed with the patient for 20 minutes, full code Family at bedside updated about the condition of the patient Case discussed with Dr. Zee Plan discussed with: Patient, Other (RN) Addendum Addendum Addendum I was physically present for the zavaleta portions of the service provided to patient by THE RESIDENT. I have reviewed the documentation, discussed the case with resident and agree with the resident's documentation except as noted. Also the patient's clinical case was discussed with the patient's nurse. This medical document was created using an electronic medical record system with computerized dictation system. Although this document has been carefully reviewed, there might still be some phonetic and typographical errors. These areas are purely typographical due to imperfections of the software programs, and do not reflect any compromise in the patient's medical care. Late signature. Date of Service: Nov 22, 2024 Billing Provider: ANDREA ZEE MD Common Visit Codes: [id number] INP/OBS CARE(HIGH) Secondary Visit Codes: [id number] CARE PLAN 30 MINUTES (20 minutes) JALEESA AZUL RESIDENT Nov 22, 2024 11:47 ANDREA ZEE MD Nov 23, 2024 00:12
--- NOTE | 2024-11-22 13:32 | DVHPN2 ---
Progress Note - Dictate Date Seen: Nov 22, 2024 Medical Necessity Reason Pt with a Central, PICC or Fol: No Subjective PT WITH GENERALIZED WEAKNESS DIZZINESS MILD HYPOTENSION BRADYCARDIA HX OF HTN HX OF BREAST CA vital signs Vital Sign Date Time Temp Pulse Resp B/P (MAP) Pulse Ox O2 Delivery O2 Flow Rate FiO2 11/22/24 12:01 66 11/22/24 11:00 98.5 15 118/73 (88) 97 98.5 11/22/24 07:40 Room Air* 0 21 Total Intake and Output 11/21/24 11/21/24 11/22/24 15:00 23:00 07:00 Intake Total 1000 ml Balance 1000 ml medications Current Medications Medications Dose Ordered Sig/Marci Route Start Time Stop Time Status Last Admin Dose Admin Amlodipine Besylate 5 mg DAILY PO 11/22/24 10:00 11/22/24 10:06 5 MG Patient Own Medication 1 tab DAILY PO 11/22/24 10:00 Sodium Chloride 10 ml Q8HR IV 11/21/24 22:00 11/22/24 06:06 10 ML Acetaminophen/ Hydrocodone Bitart 1 tab Q4HP PRN PO 11/21/24 14:45 Ondansetron HCl 4 mg Q4HP PRN IV 11/21/24 14:45 Docusate Sodium 100 mg BIDPRN PRN PO 11/21/24 14:45 Acetaminophen 650 mg Q6HP PRN PO 11/21/24 14:45 Nitroglycerin 0.4 mg Q5MINP PRN SL 11/21/24 14:45 Morphine Sulfate 2 mg Q30M PRN IV 11/21/24 14:45 Ibuprofen 600 mg Q6HP PRN PO 11/21/24 16:45 Hydralazine HCl 10 mg Q6HP PRN IV 11/21/24 17:30 Metoclopramide HCl 10 mg Q6HPRN PRN IV 11/21/24 17:30 Lorazepam 1 mg ONCE PRN PO 11/21/24 21:30 laboratory and microbiology Laboratory Tests 11/22/24 06:02 Test 11/22/24 06:02 Range/Units Serum Glucose 123 H 74-106 mg/dL Problem List GENERALIZED WEAKNESS DIZZINESS MILD HYPOTENSION BRADYCARDIA HX OF HTN HX OF BREAST CA Assessment/Plan IV FLUID CHECK FOR INFECTION ECHO EF >55% ORTHOSTATIC BP MRI NEGATIVE CAROTID DUPLEX NEGATIVE UN NORMAL CXR NO ACUTE CHANGES MAY DC AFTER ADEQUATE VOLUME REPLETION WITH OUTPT W/U TELE MILD ELEVATION IN TSH Plan discussed with: Patient SUNSHINE BLACK MD Nov 22, 2024 13:32
[2024-11-22] MEDS: cefTRIAXone 1GM/50ML D5W 50 ML IV ONE (15:15)
[2024-11-22 18:16] VITALS: PULSE 87; RESP 16; O2SAT 97
[2024-11-22] MEDS ORDERED: ASPI-543 PO (18:59)
[2024-11-22] MEDS ORDERED: CHOL20007 PO (19:00)
[2024-11-22] MEDS ORDERED: MULT-1018 PO (19:00)
[2024-11-22 20:00] VITALS: PULSE 67; PULSE 79; RESP 18; O2SAT 98
[2024-11-22 21:00] VITALS: BP 152/80; PULSE 65; RESP 18; TEMP 97.7; O2SAT 94
[2024-11-22 21:34] LABS: Urine Protein, UAD Negative (Negative)
[2024-11-23] VITALS (8 sets, daily range): BP systolic 123–159; BP diastolic 74–87; PULSE 71–99; RESP 18; TEMP 37; O2SAT 95–100
--- NOTE | 2024-11-23 06:30 | ECG ---
[facility] Test Date: 2024-11-21 Test Time: 11:09:06 Pat Name: NICKY YEAGER Department: [facility] ED Patient ID: [id number] Room: [facility]6T A Gender: F [employer]: JOVANY : 1950 Requested By: CATHY ÁLVAREZ Order Number: [id number] Reading MD: Luis Felipe Zafar Measurements Intervals [place] Rate: 65 P: 77 CA: 165 QRS: 76 QRSD: 90 T: 76 QT: 398 QTc: 414 Interpretive Statements Sinus rhythm Electronically Signed On 11-23-2024 11:18:56 PDT by Luis Felipe Zafar Please click the below link to view image of tracing.
[2024-11-23] MEDS: hydrALAZINE HCL 20 MG/ML VL IV PRN (06:42)
[2024-11-23 07:47] LABS: Hematocrit 44.4 % (36.0-46.0); Hemoglobin 15.7 g/dL (12.2-16.2); Mean Corpuscular Hemoglobin 32.8 pg (28.0-32.0); Mean Corpuscular Volume 92.4 fL (80.0-100.0); Nucleated Red Blood Cells % 0.0 %
[2024-11-23 07:53] LABS: Chloride 105 mmol/L (98-107); Potassium 3.7 mmol/L (3.5-5.1); Sodium 140 mmol/L (136-145)
[2024-11-23 07:54] LABS: Anion Gap 10 (5-15); Carbon Dioxide 25 mmol/L (20-31)
[2024-11-23 07:55] LABS: Calcium 9.3 mg/dL (8.7-10.4)
[2024-11-23 08:00] LABS: BUN/Creatinine Ratio 22.6 (10.0-20.0); Blood Urea Nitrogen 14 mg/dL (9-23); Glucose 111 mg/dL (74-106); Magnesium 2.1 mg/dL (1.6-2.6)
[2024-11-23] MEDS: ACETAMINOPHEN 325 MG TAB PO PRN (08:49)
[2024-11-23] MEDS: cefTRIAXone 1GM/50ML D5W 50 ML IV SCH (09:00)
--- NOTE | 2024-11-23 10:26 | DVHPN2 ---
Progress Note - Dictate Date Seen: Nov 23, 2024 Medical Necessity Reason Pt with a Central, PICC or Fol: No Subjective Ms. Torres is a 74 years old right-handed female with a history of hypertension, osteoporosis, breast cancer, she came to the [facility] on 11/21/24 with a chief complaint of dizziness. I have seen and examined the patient, I have discussed with her nurse, she is doing fine, alert and fully oriented, no dizziness Orthostatic vital from 11/23/24 was negative Cardiology input appreciated Urinalysis, 11/21/2024: WBC: 6, urine leukocyte esterase: Negative CBC, 11/21/2024: Unremarkable BMP, 11/21/2024: Unremarkable Lactic acid, 11/12/2024: 2.1, 1.8 TSH, 11/21/2024: 2.12 Echocardiogram, 11/22/2024: EF: 55% (cardiology progress note 11/23/2024) Carotid Doppler, 11/21/2024: No evidence of hemodynamically significant CCA or ICA stenosis CT head, 11/21/2024: No acute intracranial abnormality MRI head, 01/11/2024: 1. No acute intracranial abnormality. 2. No mass or abnormal postcontrast enhancement. 3. Paranasal sinus disease as described above MRI head, 11/22/2024: No evidence of acute infarction, intracranial hemorrhage, mass effect or hydrocephalus vital signs Vital Sign Date Time Temp Pulse Resp B/P (MAP) Pulse Ox O2 Delivery O2 Flow Rate FiO2 11/23/24 09:10 98.6 77 18 159/79 (105) 100 98.6 11/23/24 08:20 Room Air* 0 21 Total Intake and Output 11/22/24 11/22/24 11/23/24 15:00 23:00 07:00 Intake Total 25 ml 700 ml Balance 25 ml 700 ml medications Current Medications Medications Dose Ordered Sig/Marci Route Start Time Stop Time Status Last Admin Dose Admin Sodium Chloride 10 ml Q8HR IV 11/21/24 22:00 11/23/24 05:53 10 ML Acetaminophen/ Hydrocodone Bitart 1 tab Q4HP PRN PO 11/21/24 14:45 Docusate Sodium 100 mg BIDPRN PRN PO 11/21/24 14:45 Acetaminophen 650 mg Q6HP PRN PO 11/21/24 14:45 11/23/24 08:49 650 MG Hydralazine HCl 10 mg Q6HP PRN IV 11/21/24 17:30 11/23/24 06:42 10 MG Metoclopramide HCl 10 mg Q6HPRN PRN IV 11/21/24 17:30 Lorazepam 1 mg ONCE PRN PO 11/21/24 21:30 Ceftriaxone Sodium 50 ml @ 100 mls/hr DAILY@09 IV 11/23/24 09:00 11/23/24 09:00 100 MLS/HR Amlodipine Besylate 10 mg DAILY PO 11/23/24 10:00 11/23/24 09:09 10 MG objective General: the patient is well developed and nourished. No acute distress. MENTAL STATUS: Awake and alert. Oriented to person, place, time and general circumstances. Able to give personal history. SPEECH, LANGUAGE, HIGHER CORTICAL FUNCTION: no aphasia or dysathria. CRANIAL NERVES: Pupils are equal, round and reactive. EOMs full and conjugate. No nystagmus. Facial sensation intact in all three divisions bilaterally. Mandibular strength intact. Facial muscles symmetrical and strength intact. SENSATION: Sensation to touch and pinprick is normal. MOTOR: Normal tone in the upper and lower extremity. Normal muscle bulk. No fasciculations. No abnormal movements or posturing. Muscle strength of the major groups in the extremities is 5/5. REFLEXES: Deep tendon reflexes normal and symmetrical. No pathological reflexes. CEREBELLAR/COORDINATION: Finger to nose and heel to dunham are normal bilaterally. GAIT/STATION: deferred laboratory and microbiology Laboratory Tests 11/23/24 06:51 Test 11/23/24 06:51 Range/Units Serum Glucose 111 H 74-106 mg/dL Problem List Near syncopal event Arrhythmia Orthostatic hypotension UTI Assessment/Plan Monitoring Supportive treatment Orthostatic vitals Cardiology on case IV antibiotics Syncope precautions discussed More recommendation per clinical course This medical document was created using an electronic medical record system with [employer] dictation system. Although this document has been carefully reviewed, there may still be some phonetic and typographical errors. These areas are purely typographical due to imperfections of the software programs, and do not reflect any compromise in the patient's medical car Prognosis poor Plan discussed with: Patient, Other MICHELLE VINSON MD Nov 23, 2024 10:25
--- NOTE | 2024-11-23 10:56 | DVHPN2 ---
Progress Note - Dictate Date Seen: Nov 23, 2024 Medical Necessity Reason Pt with a Central, PICC or Fol: No Subjective PT WITH GENERALIZED WEAKNESS DIZZINESS MILD HYPOTENSION BRADYCARDIA HX OF HTN HX OF BREAST CA vital signs Vital Sign Date Time Temp Pulse Resp B/P (MAP) Pulse Ox O2 Delivery O2 Flow Rate FiO2 11/23/24 09:10 98.6 77 18 159/79 (105) 100 98.6 11/23/24 08:20 Room Air* 0 21 Total Intake and Output 11/22/24 11/22/24 11/23/24 15:00 23:00 07:00 Intake Total 25 ml 700 ml Balance 25 ml 700 ml medications Current Medications Medications Dose Ordered Sig/Marci Route Start Time Stop Time Status Last Admin Dose Admin Sodium Chloride 10 ml Q8HR IV 11/21/24 22:00 11/23/24 05:53 10 ML Acetaminophen/ Hydrocodone Bitart 1 tab Q4HP PRN PO 11/21/24 14:45 Docusate Sodium 100 mg BIDPRN PRN PO 11/21/24 14:45 Acetaminophen 650 mg Q6HP PRN PO 11/21/24 14:45 11/23/24 08:49 650 MG Hydralazine HCl 10 mg Q6HP PRN IV 11/21/24 17:30 11/23/24 06:42 10 MG Metoclopramide HCl 10 mg Q6HPRN PRN IV 11/21/24 17:30 Lorazepam 1 mg ONCE PRN PO 11/21/24 21:30 Ceftriaxone Sodium 50 ml @ 100 mls/hr DAILY@09 IV 11/23/24 09:00 11/23/24 09:00 100 MLS/HR Amlodipine Besylate 10 mg DAILY PO 11/23/24 10:00 11/23/24 09:09 10 MG laboratory and microbiology Laboratory Tests 11/23/24 06:51 Test 11/23/24 06:51 Range/Units Serum Glucose 111 H 74-106 mg/dL Problem List GENERALIZED WEAKNESS DIZZINESS MILD HYPOTENSION BRADYCARDIA HX OF HTN HX OF BREAST CA Assessment/Plan IV FLUID CHECK FOR INFECTION ECHO EF >55% ORTHOSTATIC BP MRI NEGATIVE CAROTID DUPLEX NEGATIVE UN NORMAL CXR NO ACUTE CHANGES MAY DC AFTER ADEQUATE VOLUME REPLETION WITH OUTPT W/U TELE MILD ELEVATION IN TSH AMBULATE PATIENT MAY DC HOME Plan discussed with: Patient Critical Care Time(min): 35 SUNSHINE BLACK MD Nov 23, 2024 10:56
[2024-11-23] MEDS ORDERED: CEPH500C PO ×2 (11:33→13:50)
--- NOTE | 2024-11-23 19:51 | DVHDSRES ---
Discharge Summary Date of Admission Resident Creating Document: JALEESA AZUL RESIDENT Nov 21, 2024 at 14:36 Date of Discharge: Nov 23, 2024 Admitting Diagnosis Dizziness with nausea Labs/Diagnostic Data: Laboratory Results Test 11/23/24 06:51 11/22/24 21:05 11/22/24 06:02 11/21/24 13:00 White Blood Count 4.9 10^3/uL (4.4-10.8) Red Blood Count 4.80 10^6/uL (4.0-5.20) Hemoglobin 15.7 g/dL (12.2-16.2) Hematocrit 44.4 % (36.0-46.0) Mean Corpuscular Volume 92.4 fL (80.0-100.0) Mean Corpuscular Hemoglobin 32.8 pg (28.0-32.0) Mean Corpuscular Hemoglobin Concent 35.4 g/dL (32.0-36.0) Red Cell Distribution Width 13.6 % (11.8-14.3) Platelet Count 170 10^3/uL (140-450) Mean Platelet Volume 9.3 fL (6.9-10.8) Neutrophils (%) (Auto) 56.4 % (37.0-80.0) Lymphocytes (%) (Auto) 22.4 % (10.0-50.0) Monocytes (%) (Auto) 15.6 % (0.0-12.0) Eosinophils (%) (Auto) 4.4 % (0.0-7.0) Basophils (%) (Auto) 1.2 % (0.0-2.0) Neutrophils # (Auto) 2.8 10 ^3/uL (1.6-8.6) Lymphocytes # (Auto) 1.1 10 ^3/uL (0.4-5.4) Monocytes # (Auto) 0.8 10 ^3/uL (0-1.3) Eosinophils # (Auto) 0.2 10 ^3/uL (0-0.8) Basophils # (Auto) 0.1 10 ^3/uL (0-0.2) Nucleated Red Blood Cells 0.0 % Sodium Level 140 mmol/L (136-145) Potassium Level 3.7 mmol/L (3.5-5.1) Chloride Level 105 mmol/L (98-107) Carbon Dioxide Level 25 mmol/L (20-31) Anion Gap 10 (5-15) Blood Urea Nitrogen 14 mg/dL (9-23) Creatinine 0.62 mg/dL (0.550-1.02) Glomerular Filtration Rate Calc 92 mL/min (>90) BUN/Creatinine Ratio 22.6 (10.0-20.0) Serum Glucose 111 mg/dL (74-106) Calcium Level 9.3 mg/dL (8.7-10.4) Magnesium Level 2.1 mg/dL (1.6-2.6) Vitamin D 25-Hydroxy 67.3 ng/mL (30.0-100) Urine Color Colorless (Yellow) Urine Clarity Clear (Clear) Urine pH 6.0 (5.0-9.0) Urine Specific Hester 1.009 (1.001-1.035) Urine Protein Negative (Negative) Urine Ketones Negative (Negative) Urine Blood Negative /uL (Negative) Urine Nitrite Negative (Negative) Urine Bilirubin Negative (Negative) Urine Urobilinogen Normal mg/dL (Negative) Urine Leukocyte Esterase Negative /uL (Negative) Urine RBC 1 /hpf (0 - 4) Urine Microscopic WBC 1 /HPF (0-5) Urine Squamous Epithelial Cells None seen /hpf (<5) Urine Bacteria None seen /hpf (None Seen) Urine Glucose Normal mg/dL (Normal) Hemoglobin A1c 6.2 % A1C (<5.7) Total Bilirubin 0.5 mg/dL (0.2-1.0) Aspartate Amino Transferase (AST) 24 U/L (13-40) Alanine Aminotransferase (ALT) 29 U/L (7-40) Alkaline Phosphatase 111 U/L (46-116) Total Protein 7.8 g/dL (5.7-8.2) Albumin 5.1 g/dL (3.2-4.8) Vitamin B12 Level 1097 pg/mL (211-911) Folic Acid 20.79 ng/mL (>5.38) Lactic Acid Level 1.8 mmol/L (0.4-2.0) Troponin I High Sensitivity < 3 ng/L (</=34) Thyroid Stimulating Hormone (TSH) 2.12 uIU/mL (0.55-4.78) Free Thyroxine (T4) Calculated 1.12 ng/dL (0.89-1.76) Free Triiodothyronine (T3) pg/mL 3.82 pg/mL (2.3-4.2) Test 11/21/24 11:20 B-Type Natriuretic Peptide 13.56 pg/mL (0-100) Other Laboratory Tests 11/23/24 06:51 Brief Hx & Hospital Course: A 74-year-old female with past medical history of hypertension, breast cancer status post lumpectomy and on anastrozole therapy, osteopenia presented with complaints of nausea, dizziness. Patient mentioned that she started having dizziness when she sit up from lying position. she also mentioned associated hot flashes and nausea. Patient went to urgent care and they recommended the patient to with GI and come to the hospital. EKG and troponins were within normal limits. Echocardiogram was ordered. Cardiology was consulted. Neurology was consulted. MRI was done which was within normal limits. TSH, B12, folate were ordered. Orthostatic vitals were negative. Urine routine showed evidence of UTI. Patient was started on IV ceftriaxone. Patient mentioned pressure in the head and mentioned previous history of sinusitis. patient mentioned improvement in her dizziness. At the time of discharge, patient had stable vitals, no new complaints. Discharge plan was discussed with the patient and patient was advised to follow up with PCP and Cardiology within 1-2 weeks of discharge. Patient was discharged on Keflex and anastrozole was stopped. Physical examination on the day of discharge General Appearance: Alert, Oriented X3, Cooperative, No acute distress HEENT: EOMI Respiratory: Clear to auscultation, Normal air movement Cardiovascular: Regular rate, Normal S1, Normal S2 Abdominal: Normal bowel sounds Extremities: No cyanosis, No edema, Normal pulses, No tenderness/swelling Skin: No rashes, No breakdown Neuro: Normal gait, Normal speech, Strength at 5/5 X4 ext, Normal tone, Sensation intact, Cranial nerves 3-12 NL, Reflexes 2+ Psych/Mental Status: Mental status NL, Mood NL Discussed with Dr. Zee Consults/Reason for consult Cardiology consulted for dizziness Neurology consulted for dizziness Condition at Discharge: Stable Final Diagnosis/Problems List Presyncope with nausea, hot flashes likely due to anastrozole therapy Acute on ?chronic sinusitis Questionable UTI Hypertension History of breast cancer status post lumpectomy Osteopenia Discharge Disposition: Home Discharge Instruct/Medications Diet: Regular Activity: No Restrictions, As Tolerated Follow Up/Referral: f/u with PCP within 1 week Medications: cephalexin Scheduled Amlodipine Besylate (Amlodipine Besylate), 1 TAB PO DAILY, (Reported) Aspirin (Aspir-Low), 81 MG PO DAILY, (Reported) Cephalexin Monohydrate (Cephalexin), 500 MG PO BID Cholecalciferol (Vitamin D3), 1 TAB PO DAILY, (Reported) Multiple Vitamin (Multivitamins), 1 TAB PO DAILY, (Reported) Discontinued Medications Anastrozole (Anastrozole), 1 TAB PO DAILY, (Reported) Discharge Statement: "Patient was advised to return to the ER or call 911 if any headaches, dizziness, shortness of breath, chest pain, abdominal pain, bleeding, fevers, or worsening of medical condition. Patient was counseled about treatment plan, medications, possible side effects, patientverbalized understanding. All questions were answered to the best of my ability. This discharge took greater then 30 minutes in planning, reviewing documentation, counseling the patient, and discussing with other team members." Addendum Addendum Addendum I was physically present for the zavaleta portions of the service provided to patient by THE RESIDENT. I have reviewed the documentation, discussed the case with resident and agree with the resident's documentation except as noted. Also the patient's clinical case was discussed with the patient's nurse. This medical document was created using an electronic medical record system with computerized dictation system. Although this document has been carefully reviewed, there might still be some phonetic and typographical errors. These areas are purely typographical due to imperfections of the software programs, and do not reflect any compromise in the patient's medical care. Late signature. Date of Service: Nov 23, 2024 Billing Provider: ANDREA ZEE MD Common Visit Codes: 93318-POU/OBS DISCH DAY >30min JALEESA AZUL Nov 23, 2024 19:51 ANDREA ZEE MD Nov 25, 2024 07:06
== END 2024-11-23 15:40 | disposition home or self-care (01) | DRG 312 ==
LOC: ER 10:54 → OVERFLOW 14:36 → TELE-WESTW 11-22 17:54
PROVIDERS: ADMIT Internal Medicine; ATTEND Internal Medicine
DX: I95.1 Orthostatic hypotension (principal); E87.20 Acidosis, unspecified; J01.90 Acute sinusitis, unspecified; T45.1X5A Adverse effect of antineoplastic and immunosuppressive drugs, initial encounter; I10 Essential (primary) hypertension; R73.9 Hyperglycemia, unspecified; M81.0 Age-related osteoporosis without current pathological fracture; M85.88 Other specified disorders of bone density and structure, other site; Z90.710 Acquired absence of both cervix and uterus; Z85.3 Personal history of malignant neoplasm of breast; Z82.49 Family history of ischemic heart disease and other diseases of the circulatory system; Z83.3 Family history of diabetes mellitus; Y92.89 Other specified places as the place of occurrence of the external cause
CPT/HCPCS: 36415; 70450; 70551; 71045; 80048; 80053; 81001; 82306; 82607; 82746; 83036; 83605; 83735; 83880; 84439; 84443; 84481; 84484; 85025; 87040; 93005; 93306; 93886; 96361; 96374; 96375; G0378; J2405

== ENCOUNTER 2025-03-15 12:52 | Outpatient (CLI) | payer MEDICARE, OTHER ==
[~2025-03-15 12:52] MED LIST changes: -ADENOSINE 53 MG in GIVE UN-DILUTED 0 ML IV ONE; -ADENOSINE 90 MG/30 ML INJ IV ONE; +AMLO1TAB22 PO; +ASPI-543 PO; +CEPH500C PO; +CHOL20007 PO; +MULT-1018 PO
== END 2025-03-15 17:00 | disposition home or self-care (01) ==
LOC: Rad HDHVI 12:52
PROVIDERS: ATTEND Internal Medicine Cardiovascular Disease
DX: I08.8 Other rheumatic multiple valve diseases (principal); I10 Essential (primary) hypertension; R42 Dizziness and giddiness
CPT/HCPCS: 93306

== ENCOUNTER 2025-03-28 12:56 | Outpatient (CLI) | payer MEDICARE, OTHER ==
[~2025-03-28] VITALS: Ht 162.6 cm; Wt 65.3 kg
[2025-03-28] MEDS ORDERED: ADENOSINE 90 MG/30 ML INJ IV ONE (13:46)
[2025-03-28] MEDS ORDERED: ADENOSINE 55 MG in GIVE UN-DILUTED 0 ML IV ONE (15:30)
== END 2025-03-28 17:00 | disposition home or self-care (01) ==
LOC: Rad HDHVI 12:56
PROVIDERS: ATTEND Internal Medicine Cardiovascular Disease
DX: I49.1 Atrial premature depolarization (principal); C50.912 Malignant neoplasm of unspecified site of left female breast; I10 Essential (primary) hypertension; Z13.6 Encounter for screening for cardiovascular disorders; R42 Dizziness and giddiness; R73.03 Prediabetes; Z82.49 Family history of ischemic heart disease and other diseases of the circulatory system
CPT/HCPCS: 78452; 93017; A9500; J0153